=== PATIENT | female | born 1965 | race Caucasian/White ===

== ENCOUNTER 2020-06-03 09:20 | Inpatient (IN) | payer BC ==
[2020-06-03 09:53] LABS: #Eosinphils 0.1 thou/uL (0.0-0.7); #Lymphocytes 1.2 thou/uL (1.20-3.40); #Monocytes 0.5 thou/uL (0.11-0.59); #Neutrophils 3.2 thou/uL (1.40-6.50); %Basophils 0.5 % (0.0-1.0); %Lymphocytes 23.5 % (21.0-51.0); %Monocytes 9.1 % (0.0-10.0); %Neutrophils 64.9 % (42.0-75.0); Mean Corpuscular HGB CONC 34.2 g/dL (32.0-36.0); Mean Corpuscular Hemoglobin 29.7 pg (27.0-31.0); Mean Corpuscular Volume 86.8 fL (78.0-98.0); Mean Platelet Volume 6.7 fL (7.4-10.4); Platelet Count 326 thou/uL (130-400); RBC Distribution Width 12.8 % (11.5-14.5); Red Blood Cell (RBC) Count 3.37 mill/uL (4.20-5.40); White Blood Cell (WBC) Count 4.9 thou/uL (4.8-10.8)
[2020-06-03] MEDS ORDERED: hydrALAZINE 20 MG/ML VIAL ONE (10:11)
[2020-06-03 10:22] LABS: ALT (SGPT) 8 U/L (8-55); AST (SGOT) 9 U/L (5-34); Albumin 3.8 g/dL (3.5-5.0); Alkaline Phosphatase 64 U/L (40-110); Anion Gap 16 mmol/L (10-20); BUN (Urea Nitrogen) 33 mg/dL (9.8-20.1); Bilirubin, Total 0.4 mg/dL (0.2-1.2); Calc. Creatinine Clearance 0 mL/min (70-130); Calcium 8.3 mg/dL (7.8-10.44); Carbon Dioxide 20 mmol/L (22-29); Chloride 106 mmol/L (98-107); Globulin 2.1 g/dL (2.4-3.5); Glucose 96 mg/dL (70-105); Lipase 41 U/L (8-78); Protein, Total 5.9 g/dL (6.0-8.3); Sodium 138 mmol/L (136-145)
[2020-06-03 14:06] LABS: Bacteria/HPF None Seen HPF (None Seen); Bilirubin Negative (Negative); Blood, Urine Negative (Negative); Clarity Clear (Clear); Glucose, Urine (Dipstick) Normal (Negative); Ketone, Urine Negative (Negative); Leukocyte Negative Leu/uL (Negative); Nitrite Negative (Negative); Protein, Urine (Dipstick) 100 mg/dL (Neg-Trace); RBC/HPF 0-3 HPF (0-3); Specific Gravity, Urine 1.012 (1.002-1.036); Squamous Epithelial 0-3 HPF (0-3); Urobilinogen Normal mg/dL (Less than 2); WBC/HPF 0-3 HPF (0-3)
[2020-06-03] MEDS ORDERED: Acetaminophen 500 MG TAB ONE (14:18)
[2020-06-03] MEDS ORDERED: Ondansetron PF 4 MG/2 ML Vial ONE (14:18)
[2020-06-03] MEDS ORDERED: Acetaminophen 325 MG TAB PO PRN (14:45)
[2020-06-03] MEDS ORDERED: Ondansetron PF 4 MG/2 ML Vial IVP PRN (14:45)
[2020-06-03] MEDS ORDERED: Ondansetron ODT 4 MG TAB SL PRN (14:45)
[2020-06-03] MEDS ORDERED: Furosemide 20 MG TAB PO PRN (15:23)
[2020-06-03] MEDS ORDERED: hydrALAZINE 20 MG/ML VIAL SLOW IVP SCH (15:45)
[2020-06-03] MEDS: Labetalol 100 MG TAB PO SCH (16:54)
[2020-06-03] MEDS: Dextrose 5 % And 0.9 % NaCl 1,000 ML IV SCH (20:23)
[2020-06-03] MEDS: Pantoprazole 40 MG VIAL IVP SCH (20:23)
[2020-06-03] MEDS: Mirtazapine 15 MG Soltab PO SCH (20:24)
[2020-06-03] MEDS: Mycophenolate 250 MG CAP PO SCH (20:25)
[2020-06-03] MEDS: Tacrolimus 1 MG CAP PO SCH (20:25)
[2020-06-03] MEDS: hydrALAZINE 25 MG TAB PO SCH (20:25)
[2020-06-03] MEDS: Sodium Bicarbonate Tab 325 MG TAB PO SCH (20:26)
[2020-06-03] MEDS: Zolpidem Tartrate 5 MG TAB PO PRN (20:38)
[2020-06-03] MEDS ORDERED: NIFEdipine XL 30 MG TAB PO SCH (21:00)
[2020-06-03] MEDS ORDERED: ALPRAZolam 0.25 MG TAB PO SCH (22:00)
[2020-06-03 22:45] LABS: SARS-CoV-2 PCR by NAA Not Detected (NotDetected)
[2020-06-04] MEDS: hydrALAZINE 20 MG/ML VIAL SLOW IVP PRN (03:16)
[2020-06-04 05:34] LABS: #Eosinphils 0.1 thou/uL (0.0-0.7); #Monocytes 0.5 thou/uL (0.11-0.59); #Neutrophils 2.2 thou/uL (1.40-6.50); %Basophils 0.8 % (0.0-1.0); %Eosinophils 2.8 % (0.0-10.0); %Lymphocytes 26.2 % (21.0-51.0); %Monocytes 12.2 % (0.0-10.0); Hemoglobin 9.2 g/dL (12.0-16.0); Mean Corpuscular HGB CONC 32.5 g/dL (32.0-36.0); Mean Corpuscular Hemoglobin 28.5 pg (27.0-31.0); Mean Corpuscular Volume 87.9 fL (78.0-98.0); Mean Platelet Volume 6.6 fL (7.4-10.4); Platelet Count 313 thou/uL (130-400); RBC Distribution Width 12.8 % (11.5-14.5); Red Blood Cell (RBC) Count 3.22 mill/uL (4.20-5.40); White Blood Cell (WBC) Count 3.7 thou/uL (4.8-10.8)
[2020-06-04 05:53] LABS: Anion Gap 12 mmol/L (10-20); BUN (Urea Nitrogen) 32 mg/dL (9.8-20.1); Calc. Creatinine Clearance 16 mL/min (70-130); Calcium 7.7 mg/dL (7.8-10.44); Carbon Dioxide 21 mmol/L (22-29); Chloride 110 mmol/L (98-107); Glucose 102 mg/dL (70-105); Potassium 4.1 mmol/L (3.5-5.1); Sodium 139 mmol/L (136-145)
[2020-06-04 05:54] LABS: Phosphorus 4.6 mg/dL (2.3-4.7)
[2020-06-04] MEDS: Labetalol 100 MG TAB PO SCH ×2 (06:46→17:27)
[2020-06-04] MEDS ORDERED: predniSONE 20 MG TAB PO SCH (08:00)
[2020-06-04] MEDS: Dextrose 5 % And 0.9 % NaCl 1,000 ML IV SCH ×2 (08:44→16:00)
[2020-06-04] MEDS: Mycophenolate 250 MG CAP PO SCH ×2 (08:47→20:38)
[2020-06-04] MEDS: Sodium Bicarbonate Tab 325 MG TAB PO SCH ×3 (08:47→20:38)
[2020-06-04] MEDS: hydrALAZINE 25 MG TAB PO SCH ×3 (08:47→20:39)
[2020-06-04] MEDS: predniSONE 20 MG TAB PO SCH (08:48)
[2020-06-04] MEDS: Enoxaparin Sodium 30 MG/0.3 ML SYRINGE SC SCH (08:49)
[2020-06-04] MEDS ORDERED: FLU VACC QS2020-21(6MOS UP)/PF 60 MCG/0.5 ML SYRINGE IM ONE (09:00)
[2020-06-04] MEDS: Pantoprazole 40 MG VIAL IVP SCH ×2 (09:07→20:38)
[2020-06-04] MEDS: Tacrolimus 1 MG CAP PO SCH ×2 (10:27→20:38)
[2020-06-04] MEDS: EPOETIN ALFA-EPBX (ESRD) 4,000 UNIT/ML VIAL SC SCH (12:51)
[2020-06-04] MEDS: Ondansetron PF 4 MG/2 ML Vial IVP PRN (12:51)
[2020-06-04] MEDS ORDERED: GoLYTELY 4,000 ml Bottle PO SCH (17:45)
[2020-06-04] MEDS ORDERED: Promethazine HCl 25 MG/ML VIAL IM/IV PRN (18:38)
[2020-06-04 20:02] VITALS: BMI 21.0
[2020-06-04] MEDS: Zolpidem Tartrate 5 MG TAB PO PRN (20:38)
[2020-06-04] MEDS: Promethazine HCl 25 MG in Sodium Chloride 0.9% 50 ML IVPB PRN (20:39)
[2020-06-04] MEDS: Mirtazapine 15 MG Soltab PO SCH (20:39)
[2020-06-04] MEDS: Acetaminophen 325 MG TAB PO PRN (22:05)
[2020-06-05] MEDS: hydrALAZINE 20 MG/ML VIAL SLOW IVP PRN ×4 (03:50→23:23)
[2020-06-05] MEDS: Acetaminophen 325 MG TAB PO PRN ×2 (06:17→11:54)
[2020-06-05 06:20] LABS: Iron 88 ug/dL (50-170); Iron Binding Capacity, Total 193 mcg/dL (265-497)
[2020-06-05] MEDS ORDERED: Ferrous Sulfate 325 MG TAB PO SCH (08:00)
[2020-06-05] MEDS: Labetalol 100 MG TAB PO SCH ×2 (08:28→16:40)
[2020-06-05] MEDS ORDERED: hydrALAZINE 20 MG/ML VIAL ONE (09:18)
[2020-06-05] MEDS ORDERED: PROPOFOL 200 MG/20 ML VIAL ONE (10:44)
[2020-06-05] MEDS ORDERED: Lidocaine 1% PF 5 ML VIAL ONE (10:44)
[2020-06-05] MEDS: Pantoprazole 40 MG VIAL IVP SCH ×2 (11:52→20:05)
[2020-06-05] MEDS: Ondansetron PF 4 MG/2 ML Vial IVP PRN (11:52)
[2020-06-05] MEDS: Mycophenolate 250 MG CAP PO SCH ×2 (11:53→21:35)
[2020-06-05] MEDS: Tacrolimus 1 MG CAP PO SCH ×2 (11:54→21:36)
[2020-06-05] MEDS: Sodium Bicarbonate Tab 325 MG TAB PO SCH ×3 (11:54→21:36)
[2020-06-05] MEDS: hydrALAZINE 25 MG TAB PO SCH ×3 (11:55→20:05)
[2020-06-05] MEDS: predniSONE 20 MG TAB PO SCH (11:56)
[2020-06-05 14:27] LABS: #Eosinphils 0.1 thou/uL (0.0-0.7); #Lymphocytes 0.7 thou/uL (1.20-3.40); #Monocytes 0.3 thou/uL (0.11-0.59); #Neutrophils 5.4 thou/uL (1.40-6.50); %Basophils 0.5 % (0.0-1.0); %Lymphocytes 10.6 % (21.0-51.0); %Monocytes 4.4 % (0.0-10.0); %Neutrophils 83.5 % (42.0-75.0); Hemoglobin 9.8 g/dL (12.0-16.0); Mean Corpuscular HGB CONC 33.8 g/dL (32.0-36.0); Mean Corpuscular Hemoglobin 29.5 pg (27.0-31.0); Mean Corpuscular Volume 87.3 fL (78.0-98.0); Mean Platelet Volume 6.3 fL (7.4-10.4); Platelet Count 355 thou/uL (130-400); RBC Distribution Width 12.8 % (11.5-14.5); White Blood Cell (WBC) Count 6.5 thou/uL (4.8-10.8)
[2020-06-05] MEDS: Dextrose 5 % And 0.9 % NaCl 1,000 ML IV SCH (14:43)
[2020-06-05 14:53] LABS: Anion Gap 14 mmol/L (10-20); BUN (Urea Nitrogen) 25 mg/dL (9.8-20.1); Calc. Creatinine Clearance 15 mL/min (70-130); Calcium 8.1 mg/dL (7.8-10.44); Carbon Dioxide 20 mmol/L (22-29); Chloride 111 mmol/L (98-107); Glucose 153 mg/dL (70-105); Potassium 3.9 mmol/L (3.5-5.1); Sodium 141 mmol/L (136-145)
[2020-06-05] MEDS: Promethazine HCl 25 MG in Sodium Chloride 0.9% 50 ML IVPB PRN (16:39)
[2020-06-05] MEDS ORDERED: GoLYTELY 4,000 ml Bottle PO SCH (20:00)
[2020-06-05] MEDS: Morphine 2 MG/ML VIAL SLOW IVP PRN (20:06)
[2020-06-05] MEDS ORDERED: Prochlorperazine Edisylate 10 MG in Sodium Chloride 0.9% 50 ML IVPB PRN (21:31)
[2020-06-05] MEDS: Mirtazapine 15 MG Soltab PO SCH (21:35)
[2020-06-05] MEDS ORDERED: Ondansetron HCl/PF 8 MG in Sodium Chloride 0.9% 50 ML IVPB SCH (22:00)
[2020-06-06] MEDS: Morphine 2 MG/ML VIAL SLOW IVP PRN (05:07)
[2020-06-06] MEDS: hydrALAZINE 20 MG/ML VIAL SLOW IVP PRN (05:07)
[2020-06-06 05:09] LABS: #Eosinphils 0.1 thou/uL (0.0-0.7); #Lymphocytes 1.7 thou/uL (1.20-3.40); #Monocytes 0.5 thou/uL (0.11-0.59); #Neutrophils 3.3 thou/uL (1.40-6.50); %Basophils 0.6 % (0.0-1.0); %Lymphocytes 29.6 % (21.0-51.0); %Monocytes 9.1 % (0.0-10.0); %Neutrophils 59.7 % (42.0-75.0); Hemoglobin 9.2 g/dL (12.0-16.0); Mean Corpuscular HGB CONC 34.2 g/dL (32.0-36.0); Mean Corpuscular Hemoglobin 29.8 pg (27.0-31.0); Mean Corpuscular Volume 87.3 fL (78.0-98.0); Mean Platelet Volume 6.1 fL (7.4-10.4); Platelet Count 368 thou/uL (130-400); RBC Distribution Width 12.9 % (11.5-14.5); White Blood Cell (WBC) Count 5.6 thou/uL (4.8-10.8)
[2020-06-06 05:29] LABS: Anion Gap 16 mmol/L (10-20); BUN (Urea Nitrogen) 25 mg/dL (9.8-20.1); Calc. Creatinine Clearance 14 mL/min (70-130); Calcium 7.7 mg/dL (7.8-10.44); Carbon Dioxide 19 mmol/L (22-29); Chloride 107 mmol/L (98-107); Glucose 100 mg/dL (70-105); Potassium 3.8 mmol/L (3.5-5.1); Sodium 138 mmol/L (136-145)
[2020-06-06] MEDS: Pantoprazole 40 MG VIAL IVP SCH ×2 (07:45→22:42)
[2020-06-06] MEDS: Mycophenolate 250 MG CAP PO SCH ×2 (07:46→22:41)
[2020-06-06] MEDS: Sodium Bicarbonate Tab 325 MG TAB PO SCH ×3 (07:46→22:40)
[2020-06-06] MEDS: Calcitriol 0.25 MCG CAP PO SCH (07:47)
[2020-06-06] MEDS: Labetalol 100 MG TAB PO SCH ×2 (07:47→17:09)
[2020-06-06] MEDS: hydrALAZINE 25 MG TAB PO SCH ×3 (07:47→22:39)
[2020-06-06] MEDS: predniSONE 20 MG TAB PO SCH (07:47)
[2020-06-06] MEDS: Tacrolimus 1 MG CAP PO SCH ×2 (07:48→22:59)
[2020-06-06] MEDS: cloNIDine 0.1 MG TAB PO SCH ×2 (07:48→22:38)
[2020-06-06] MEDS ORDERED: Lidocaine 1% PF 5 ML VIAL ONE (12:05)
[2020-06-06] MEDS ORDERED: PROPOFOL 200 MG/20 ML VIAL ONE ×2 (12:17)
[2020-06-06] MEDS: cloNIDine 0.1mg/24 Hour PATCH TD SCH (13:58)
[2020-06-06] MEDS: Enoxaparin Sodium 30 MG/0.3 ML SYRINGE SC SCH (14:08)
[2020-06-06] MEDS: Ondansetron HCl/PF 8 MG in Sodium Chloride 0.9% 50 ML IVPB SCH ×2 (14:08→22:41)
[2020-06-06] MEDS: Mirtazapine 15 MG Soltab PO SCH (22:59)
[2020-06-07 06:22] LABS: #Eosinphils 0.1 thou/uL (0.0-0.7); #Lymphocytes 1.8 thou/uL (1.20-3.40); #Monocytes 0.6 thou/uL (0.11-0.59); #Neutrophils 3.6 thou/uL (1.40-6.50); %Basophils 0.4 % (0.0-1.0); %Eosinophils 1.4 % (0.0-10.0); %Lymphocytes 29.3 % (21.0-51.0); %Monocytes 9.4 % (0.0-10.0); %Neutrophils 59.5 % (42.0-75.0); Hemoglobin 8.2 g/dL (12.0-16.0); Mean Corpuscular HGB CONC 33.6 g/dL (32.0-36.0); Mean Corpuscular Hemoglobin 29.5 pg (27.0-31.0); Mean Corpuscular Volume 87.9 fL (78.0-98.0); Mean Platelet Volume 6.4 fL (7.4-10.4); Platelet Count 335 thou/uL (130-400); RBC Distribution Width 12.7 % (11.5-14.5); Red Blood Cell (RBC) Count 2.79 mill/uL (4.20-5.40); White Blood Cell (WBC) Count 6.1 thou/uL (4.8-10.8)
[2020-06-07] MEDS: Labetalol 100 MG TAB PO SCH ×2 (06:47→15:50)
[2020-06-07 06:48] LABS: Anion Gap 15 mmol/L (10-20); BUN (Urea Nitrogen) 30 mg/dL (9.8-20.1); Calc. Creatinine Clearance 12 mL/min (70-130); Calcium 7.3 mg/dL (7.8-10.44); Carbon Dioxide 22 mmol/L (22-29); Chloride 107 mmol/L (98-107); Glucose 92 mg/dL (70-105); Potassium 3.6 mmol/L (3.5-5.1); Sodium 140 mmol/L (136-145)
[2020-06-07] MEDS: Pantoprazole 40 MG VIAL IVP SCH ×2 (09:25→21:01)
[2020-06-07] MEDS: cloNIDine 0.1 MG TAB PO SCH (09:26)
[2020-06-07] MEDS: Tacrolimus 1 MG CAP PO SCH ×2 (09:26→21:09)
[2020-06-07] MEDS: Enoxaparin Sodium 30 MG/0.3 ML SYRINGE SC SCH (09:26)
[2020-06-07] MEDS: hydrALAZINE 25 MG TAB PO SCH ×3 (09:27→20:59)
[2020-06-07] MEDS: Sodium Bicarbonate Tab 325 MG TAB PO SCH ×3 (09:27→21:01)
[2020-06-07] MEDS: Mycophenolate 250 MG CAP PO SCH ×2 (09:28→21:00)
[2020-06-07] MEDS: predniSONE 20 MG TAB PO SCH (09:28)
[2020-06-07] MEDS: Calcitriol 0.25 MCG CAP PO SCH (09:29)
[2020-06-07] MEDS ORDERED: Dextrose 5 %-0.45 % NaCl 1,000 ML IV SCH (10:30)
[2020-06-07] MEDS: Ondansetron HCl/PF 8 MG in Sodium Chloride 0.9% 50 ML IVPB SCH ×2 (11:59→21:40)
[2020-06-07] MEDS: Dextrose 5 %-0.45 % NaCl 1,000 ML IV SCH ×2 (11:59→21:41)
[2020-06-07 13:14] LABS: Tacrolimus 5.4 ng/mL (2.0-20.0)
[2020-06-07] MEDS: Mirtazapine 15 MG Soltab PO SCH (21:09)
[2020-06-07] MEDS: Acetaminophen 325 MG TAB PO PRN (23:35)
[2020-06-08 05:56] LABS: Anion Gap 16 mmol/L (10-20); BUN (Urea Nitrogen) 33 mg/dL (9.8-20.1); Calc. Creatinine Clearance 11 mL/min (70-130); Calcium 6.6 mg/dL (7.8-10.44); Carbon Dioxide 15 mmol/L (22-29); Chloride 110 mmol/L (98-107); Glucose 124 mg/dL (70-105); Potassium 3.9 mmol/L (3.5-5.1); Sodium 137 mmol/L (136-145)
[2020-06-08 06:01] LABS: #Lymphocytes 1.4 thou/uL (1.20-3.40); #Monocytes 0.5 thou/uL (0.11-0.59); #Neutrophils 2.3 thou/uL (1.40-6.50); %Basophils 1.1 % (0.0-1.0); %Eosinophils 1.1 % (0.0-10.0); %Lymphocytes 32.7 % (21.0-51.0); %Monocytes 11.4 % (0.0-10.0); %Neutrophils 53.7 % (42.0-75.0); Hemoglobin 7.9 g/dL (12.0-16.0); Mean Corpuscular HGB CONC 34.3 g/dL (32.0-36.0); Mean Corpuscular Hemoglobin 30.4 pg (27.0-31.0); Mean Corpuscular Volume 88.7 fL (78.0-98.0); Mean Platelet Volume 6.7 fL (7.4-10.4); Platelet Count 334 thou/uL (130-400); RBC Distribution Width 12.7 % (11.5-14.5); Red Blood Cell (RBC) Count 2.58 mill/uL (4.20-5.40); White Blood Cell (WBC) Count 4.3 thou/uL (4.8-10.8)
[2020-06-08] MEDS: Labetalol 100 MG TAB PO SCH ×2 (06:51→15:57)
[2020-06-08] MEDS: Ondansetron HCl/PF 8 MG in Sodium Chloride 0.9% 50 ML IVPB SCH ×2 (09:30→20:33)
[2020-06-08] MEDS: Pantoprazole 40 MG VIAL IVP SCH ×2 (09:31→20:34)
[2020-06-08] MEDS: Dextrose 5 %-0.45 % NaCl 1,000 ML IV SCH (09:31)
[2020-06-08] MEDS: predniSONE 20 MG TAB PO SCH (09:31)
[2020-06-08] MEDS: Sodium Bicarbonate Tab 325 MG TAB PO SCH ×3 (09:42→20:34)
[2020-06-08] MEDS: Tacrolimus 1 MG CAP PO SCH ×2 (09:43→20:34)
[2020-06-08] MEDS: Calcitriol 0.25 MCG CAP PO SCH (09:44)
[2020-06-08] MEDS: hydrALAZINE 25 MG TAB PO SCH ×3 (09:44→20:35)
[2020-06-08] MEDS: Mycophenolate 250 MG CAP PO SCH ×2 (09:45→20:34)
[2020-06-08] MEDS: Enoxaparin Sodium 30 MG/0.3 ML SYRINGE SC SCH (09:46)
[2020-06-08] MEDS: Sodium Bicarbonate 150 MEQ in Dextrose 5% in Water 1,000 ML IV SCH (12:58)
[2020-06-08 18:37] LABS: Creatinine, Urine 74.75 mg/dL (47-110)
[2020-06-08] MEDS: Mirtazapine 15 MG Soltab PO SCH (20:33)
[2020-06-09] MEDS: Sodium Bicarbonate 150 MEQ in Dextrose 5% in Water 1,000 ML IV SCH (02:04)
[2020-06-09] MEDS: hydrALAZINE 20 MG/ML VIAL SLOW IVP PRN (04:17)
[2020-06-09 07:05] LABS: Albumin 2.8 g/dL (3.5-5.0); Anion Gap 12 mmol/L (10-20); BUN (Urea Nitrogen) 33 mg/dL (9.8-20.1); BUN/Creatinine Ratio 6.93; Calc. Creatinine Clearance 11 mL/min (70-130); Calcium 6.9 mg/dL (7.8-10.44); Carbon Dioxide 30 mmol/L (22-29); Chloride 102 mmol/L (98-107); Glucose 109 mg/dL (70-105); Phosphorus 3.3 mg/dL (2.3-4.7); Potassium 3.3 mmol/L (3.5-5.1); Sodium 141 mmol/L (136-145)
[2020-06-09] MEDS: predniSONE 20 MG TAB PO SCH (08:07)
[2020-06-09] MEDS: Labetalol 100 MG TAB PO SCH ×2 (08:07→16:07)
[2020-06-09] MEDS ORDERED: Potassium Chloride 20 MEQ TAB PO SCH (10:00)
[2020-06-09] MEDS: Tacrolimus 1 MG CAP PO SCH ×2 (10:20→20:53)
[2020-06-09] MEDS: Acetaminophen 325 MG TAB PO PRN (10:20)
[2020-06-09] MEDS: Mycophenolate 250 MG CAP PO SCH ×2 (10:21→20:51)
[2020-06-09] MEDS: hydrALAZINE 25 MG TAB PO SCH ×3 (10:21→20:51)
[2020-06-09] MEDS: Calcitriol 0.25 MCG CAP PO SCH (10:21)
[2020-06-09] MEDS: Ondansetron HCl/PF 8 MG in Sodium Chloride 0.9% 50 ML IVPB SCH ×2 (10:22→20:48)
[2020-06-09] MEDS: Pantoprazole 40 MG VIAL IVP SCH ×2 (10:22→21:10)
[2020-06-09] MEDS: Enoxaparin Sodium 30 MG/0.3 ML SYRINGE SC SCH (10:23)
[2020-06-09] MEDS: Sodium Bicarbonate Tab 325 MG TAB PO SCH (12:51)
[2020-06-09] MEDS: Lactated Ringer's 1,000 ML IV SCH ×2 (13:40→20:50)
[2020-06-09] MEDS: Mirtazapine 15 MG Soltab PO SCH (20:53)
[2020-06-10] MEDS: Lactated Ringer's 1,000 ML IV SCH ×2 (05:10→21:06)
[2020-06-10 05:39] LABS: Albumin 2.6 g/dL (3.5-5.0); Anion Gap 12 mmol/L (10-20); BUN (Urea Nitrogen) 32 mg/dL (9.8-20.1); BUN/Creatinine Ratio 7.22; Calc. Creatinine Clearance 12 mL/min (70-130); Calcium 6.9 mg/dL (7.8-10.44); Carbon Dioxide 30 mmol/L (22-29); Chloride 103 mmol/L (98-107); Glucose 94 mg/dL (70-105); Magnesium 1.5 mg/dL (1.6-2.6); Phosphorus 3.5 mg/dL (2.3-4.7); Potassium 4.1 mmol/L (3.5-5.1); Sodium 141 mmol/L (136-145)
[2020-06-10] MEDS: Tacrolimus 1 MG CAP PO SCH ×2 (08:42→21:06)
[2020-06-10] MEDS: Mycophenolate 250 MG CAP PO SCH ×2 (08:43→21:07)
[2020-06-10] MEDS: hydrALAZINE 25 MG TAB PO SCH ×3 (08:43→21:07)
[2020-06-10] MEDS: Calcitriol 0.25 MCG CAP PO SCH (08:44)
[2020-06-10] MEDS: Pantoprazole 40 MG VIAL IVP SCH ×2 (08:45→21:06)
[2020-06-10] MEDS: Ondansetron HCl/PF 8 MG in Sodium Chloride 0.9% 50 ML IVPB SCH ×2 (08:45→21:15)
[2020-06-10] MEDS: Enoxaparin Sodium 30 MG/0.3 ML SYRINGE SC SCH (08:47)
[2020-06-10] MEDS ORDERED: Albumin 25% 25 GM/100 ML BOT IVPB ONE (08:56)
[2020-06-10] MEDS: predniSONE 20 MG TAB PO SCH (09:03)
[2020-06-10] MEDS: Labetalol 100 MG TAB PO SCH ×2 (09:04→17:24)
[2020-06-10] MEDS: Albumin 25% 25 GM/100 ML BOT IVPB SCH ×3 (10:04→21:06)
[2020-06-10] MEDS: Sodium Bicarbonate Tab 325 MG TAB PO SCH ×2 (15:44→21:08)
[2020-06-10] MEDS: Mirtazapine 15 MG Soltab PO SCH (21:06)
[2020-06-10] MEDS: Acetaminophen 325 MG TAB PO PRN (21:13)
[2020-06-11] MEDS: Lactated Ringer's 1,000 ML IV SCH ×3 (00:38→21:11)
[2020-06-11] MEDS: Albumin 25% 25 GM/100 ML BOT IVPB SCH (04:14)
[2020-06-11 05:35] LABS: #Eosinphils 0.2 thou/uL (0.0-0.7); #Lymphocytes 1.4 thou/uL (1.20-3.40); #Monocytes 0.8 thou/uL (0.11-0.59); #Neutrophils 3.3 thou/uL (1.40-6.50); %Basophils 0.5 % (0.0-1.0); %Eosinophils 3.3 % (0.0-10.0); %Lymphocytes 25.4 % (21.0-51.0); %Monocytes 13.2 % (0.0-10.0); %Neutrophils 57.7 % (42.0-75.0); Hemoglobin 7.4 g/dL (12.0-16.0); Mean Corpuscular HGB CONC 33.6 g/dL (32.0-36.0); Mean Corpuscular Hemoglobin 29.8 pg (27.0-31.0); Mean Corpuscular Volume 88.8 fL (78.0-98.0); Mean Platelet Volume 6.7 fL (7.4-10.4); Platelet Count 246 thou/uL (130-400); Red Blood Cell (RBC) Count 2.47 mill/uL (4.20-5.40); White Blood Cell (WBC) Count 5.6 thou/uL (4.8-10.8)
[2020-06-11 06:45] LABS: Albumin 3.9 g/dL (3.5-5.0); Anion Gap 13 mmol/L (10-20); BUN (Urea Nitrogen) 30 mg/dL (9.8-20.1); BUN/Creatinine Ratio 6.82; Calc. Creatinine Clearance 12 mL/min (70-130); Calcium 8.1 mg/dL (7.8-10.44); Carbon Dioxide 27 mmol/L (22-29); Chloride 106 mmol/L (98-107); Glucose 94 mg/dL (70-105); Iron 54 ug/dL (50-170); Iron Binding Capacity, Total 136 mcg/dL (265-497); Phosphorus 3.3 mg/dL (2.3-4.7); Potassium 4.4 mmol/L (3.5-5.1); Sodium 142 mmol/L (136-145)
[2020-06-11] MEDS: predniSONE 20 MG TAB PO SCH (08:54)
[2020-06-11] MEDS: Labetalol 100 MG TAB PO SCH ×2 (08:54→21:17)
[2020-06-11] MEDS: Calcitriol 0.25 MCG CAP PO SCH (08:55)
[2020-06-11] MEDS: Enoxaparin Sodium 30 MG/0.3 ML SYRINGE SC SCH (08:55)
[2020-06-11] MEDS: hydrALAZINE 25 MG TAB PO SCH ×3 (08:56→21:12)
[2020-06-11] MEDS: Mycophenolate 250 MG CAP PO SCH ×2 (08:57→21:12)
[2020-06-11] MEDS: Tacrolimus 1 MG CAP PO SCH ×2 (08:58→21:12)
[2020-06-11] MEDS: Pantoprazole 40 MG VIAL IVP SCH ×2 (08:58→21:12)
[2020-06-11] MEDS: Ondansetron HCl/PF 8 MG in Sodium Chloride 0.9% 50 ML IVPB SCH ×2 (08:59→21:12)
[2020-06-11] MEDS: Acetaminophen 325 MG TAB PO PRN (09:14)
[2020-06-11] MEDS ORDERED: IRON SUCROSE COMPLEX 100 MG/5 ML SLOW IVP SCH (09:15)
[2020-06-11] MEDS: Sodium Bicarbonate Tab 325 MG TAB PO SCH ×3 (09:19→21:17)
[2020-06-11] MEDS ORDERED: Sodium Ferric Gluconate 62.5 MG/5 ML AMP SLOW IVP SCH ×2 (09:30→10:30)
[2020-06-11] MEDS ORDERED: CEFAZOLIN 2 GM in Premix Bag 1 BAG IVPB SCH (09:45)
[2020-06-11] MEDS ORDERED: Lidocaine 2% w/Epinephrine 1:200K 20 ML VIAL ONE (15:36)
[2020-06-11] MEDS ORDERED: Heparin 5,000 UNITS/ML VIAL ONE (15:36)
[2020-06-11] MEDS ORDERED: Lidocaine 2% PF 5 ML VIAL ONE ×2 (15:36→15:38)
[2020-06-11] MEDS ORDERED: Heparin 10,000 UNITS/ 10 ML VIAL ONE ×2 (15:36→16:40)
[2020-06-11] MEDS ORDERED: Bupivacaine PF 0.5% 30 ML VIAL ONE (15:36)
[2020-06-11] MEDS ORDERED: Protamine Sulfate 50 MG/5 ML VIAL ONE (15:37)
[2020-06-11] MEDS ORDERED: Sodium Chloride 0.9% 20 ML ONE (15:38)
[2020-06-11] MEDS ORDERED: Ioversol 68 % 50 ML VIAL ONE (15:38)
[2020-06-11] MEDS ORDERED: Fentanyl 100 MCG/2 ML VIAL ONE ×3 (15:46→19:04)
[2020-06-11] MEDS ORDERED: Sodium Chloride 0.9% 10 ML ONE (16:04)
[2020-06-11] MEDS ORDERED: Midazolam HCl 2 mg/2 ml Vial ONE (16:11)
[2020-06-11 16:13] LABS: Routine O & P Final report (.)
[2020-06-11] MEDS ORDERED: ePHEDrine 50 MG/ML VIAL ONE (16:19)
[2020-06-11] MEDS ORDERED: Glycopyrrolate 0.2 MG/ML 5 ML SYRINGE ONE (16:19)
[2020-06-11] MEDS ORDERED: PROPOFOL 200 MG/20 ML VIAL ONE (16:19)
[2020-06-11] MEDS ORDERED: Ondansetron PF 4 MG/2 ML Vial ONE (16:19)
[2020-06-11] MEDS ORDERED: PHENYLEPHRINE-NS 100 MCG/ML 10 ML SYRINGE ONE (16:19)
[2020-06-11] MEDS ORDERED: Lidocaine 1% PF 5 ML VIAL ONE (16:19)
[2020-06-11] MEDS ORDERED: Rocuronium Bromide 10 MG/ML (10ML VIAL) ONE (16:19)
[2020-06-11 19:52] LABS: BHCG - Serum Negative (NEGATIVE); Pregs Control Background? CLEAR/WHITE (CLR/WHITE); Pregs Control Bar Appear? YES (CONTROL BAR)
[2020-06-11] MEDS: Mirtazapine 15 MG Soltab PO SCH (21:12)
[2020-06-11] MEDS: EPOETIN ALFA-EPBX (ESRD) 4,000 UNIT/ML VIAL SC SCH (21:34)
[2020-06-11] MEDS: Morphine 2 MG/ML VIAL SLOW IVP PRN (22:11)
[2020-06-12] MEDS: Morphine 2 MG/ML VIAL SLOW IVP PRN ×5 (04:14→22:53)
[2020-06-12 05:23] LABS: #Lymphocytes 0.6 thou/uL (1.20-3.40); #Monocytes 0.4 thou/uL (0.11-0.59); #Neutrophils 6.6 thou/uL (1.40-6.50); %Basophils 0.2 % (0.0-1.0); %Eosinophils 0.3 % (0.0-10.0); %Lymphocytes 8.2 % (21.0-51.0); %Monocytes 4.6 % (0.0-10.0); %Neutrophils 86.7 % (42.0-75.0); Hemoglobin 7.8 g/dL (12.0-16.0); Mean Corpuscular HGB CONC 32.5 g/dL (32.0-36.0); Mean Corpuscular Volume 89.1 fL (78.0-98.0); Mean Platelet Volume 7.3 fL (7.4-10.4); Platelet Count 226 thou/uL (130-400); RBC Distribution Width 13.2 % (11.5-14.5); White Blood Cell (WBC) Count 7.7 thou/uL (4.8-10.8)
[2020-06-12 05:54] LABS: Albumin 3.9 g/dL (3.5-5.0); Anion Gap 15 mmol/L (10-20); BUN (Urea Nitrogen) 36 mg/dL (9.8-20.1); BUN/Creatinine Ratio 7.83; Calc. Creatinine Clearance 12 mL/min (70-130); Calcium 8.3 mg/dL (7.8-10.44); Carbon Dioxide 22 mmol/L (22-29); Chloride 105 mmol/L (98-107); Glucose 132 mg/dL (70-105); Phosphorus 5.3 mg/dL (2.3-4.7); Potassium 5.4 mmol/L (3.5-5.1); Sodium 137 mmol/L (136-145)
[2020-06-12 07:17] LABS: CMV DNA-PCR Test Positive < 200 IU/mL (Negative)
[2020-06-12 08:54] LABS: HBSAB Concentration Less than 8.00 mIU/mL; Hep B Core Total Ab Non-Reactive (NonReactive); Hep B Core Total Index 0.04 S/CO (0-0.79); Hep B Surf AB Non-Reactive (NonReactive); Hep B Surf Ag Non-Reactive S/CO (NonReactive); Hep C IgG Ab Non-Reactive (NonReactive); Hep C Index 0.02 S/CO (0-0.79)
[2020-06-12] MEDS: hydrALAZINE 25 MG TAB PO SCH ×3 (08:58→21:46)
[2020-06-12] MEDS: Mycophenolate 250 MG CAP PO SCH ×2 (08:58→21:45)
[2020-06-12] MEDS: Calcitriol 0.25 MCG CAP PO SCH (08:59)
[2020-06-12] MEDS: Sodium Bicarbonate Tab 325 MG TAB PO SCH ×3 (08:59→21:46)
[2020-06-12] MEDS: predniSONE 20 MG TAB PO SCH (09:00)
[2020-06-12] MEDS ORDERED: cloNIDine 0.1mg/24 Hour PATCH TD SCH (09:00)
[2020-06-12] MEDS: Labetalol 100 MG TAB PO SCH ×2 (09:00→15:46)
[2020-06-12] MEDS: Enoxaparin Sodium 30 MG/0.3 ML SYRINGE SC SCH (09:01)
[2020-06-12] MEDS: Tacrolimus 1 MG CAP PO SCH ×2 (09:01→21:44)
[2020-06-12] MEDS: Pantoprazole 40 MG VIAL IVP SCH ×2 (09:01→21:45)
[2020-06-12] MEDS: traMADol HCl 50 MG TAB PO PRN (09:02)
[2020-06-12] MEDS: Acetaminophen 325 MG TAB PO PRN (09:02)
[2020-06-12] MEDS ORDERED: Tuberculin PPD 0.1 ML VIAL I-DERMAL SCH ×2 (10:15)
[2020-06-12] MEDS: Lactated Ringer's 1,000 ML IV SCH ×2 (13:24→19:37)
[2020-06-12] MEDS: Ondansetron HCl/PF 8 MG in Sodium Chloride 0.9% 50 ML IVPB SCH ×2 (13:25→21:47)
[2020-06-12] MEDS ORDERED: Heparin 10,000 UNITS/ 10 ML VIAL ONE (14:23)
[2020-06-12] MEDS: Mirtazapine 15 MG Soltab PO SCH (21:48)
[2020-06-12] MEDS: Zolpidem Tartrate 5 MG TAB PO PRN (22:59)
[2020-06-13] MEDS: Lactated Ringer's 1,000 ML IV SCH (03:45)
[2020-06-13 06:58] LABS: #Eosinphils 0.1 thou/uL (0.0-0.7); #Lymphocytes 1.8 thou/uL (1.20-3.40); #Monocytes 0.8 thou/uL (0.11-0.59); #Neutrophils 4.2 thou/uL (1.40-6.50); %Basophils 0.3 % (0.0-1.0); %Eosinophils 2.2 % (0.0-10.0); %Lymphocytes 25.5 % (21.0-51.0); %Monocytes 11.8 % (0.0-10.0); %Neutrophils 60.3 % (42.0-75.0); Hemoglobin 7.1 g/dL (12.0-16.0); Mean Corpuscular HGB CONC 32.8 g/dL (32.0-36.0); Mean Corpuscular Hemoglobin 29.7 pg (27.0-31.0); Mean Corpuscular Volume 90.5 fL (78.0-98.0); Mean Platelet Volume 7.3 fL (7.4-10.4); Platelet Count 243 thou/uL (130-400); RBC Distribution Width 13.5 % (11.5-14.5); White Blood Cell (WBC) Count 6.9 thou/uL (4.8-10.8)
[2020-06-13 07:25] LABS: Albumin 3.6 g/dL (3.5-5.0); Anion Gap 13 mmol/L (10-20); BUN (Urea Nitrogen) 31 mg/dL (9.8-20.1); Calc. Creatinine Clearance 13 mL/min (70-130); Carbon Dioxide 27 mmol/L (22-29); Chloride 105 mmol/L (98-107); Glucose 103 mg/dL (70-105); Phosphorus 4.3 mg/dL (2.3-4.7); Potassium 3.8 mmol/L (3.5-5.1); Sodium 141 mmol/L (136-145)
[2020-06-13] MEDS: Morphine 2 MG/ML VIAL SLOW IVP PRN ×3 (08:02→20:58)
[2020-06-13] MEDS: predniSONE 20 MG TAB PO SCH (11:57)
[2020-06-13] MEDS: Pantoprazole 40 MG VIAL IVP SCH ×2 (11:57→20:52)
[2020-06-13] MEDS: Calcitriol 0.25 MCG CAP PO SCH (11:58)
[2020-06-13] MEDS: Enoxaparin Sodium 30 MG/0.3 ML SYRINGE SC SCH (11:58)
[2020-06-13] MEDS: Ondansetron HCl/PF 8 MG in Sodium Chloride 0.9% 50 ML IVPB SCH ×2 (12:00→20:59)
[2020-06-13] MEDS: cloNIDine 0.1mg/24 Hour PATCH TD SCH (12:00)
[2020-06-13] MEDS: Tacrolimus 1 MG CAP PO SCH ×2 (12:00→20:57)
[2020-06-13] MEDS: hydrALAZINE 25 MG TAB PO SCH ×3 (12:00→20:54)
[2020-06-13] MEDS: Labetalol 100 MG TAB PO SCH ×2 (12:01→17:03)
[2020-06-13] MEDS: traMADol HCl 50 MG TAB PO PRN (12:16)
[2020-06-13] MEDS: Acetaminophen 325 MG TAB PO PRN (12:16)
[2020-06-13] MEDS: Mycophenolate 250 MG CAP PO SCH (18:43)
[2020-06-13] MEDS: Sodium Bicarbonate Tab 325 MG TAB PO SCH (18:43)
[2020-06-13] MEDS: Mirtazapine 15 MG Soltab PO SCH (21:09)
[2020-06-13] MEDS: Zolpidem Tartrate 5 MG TAB PO PRN (21:13)
[2020-06-14 05:55] LABS: #Eosinphils 0.2 thou/uL (0.0-0.7); #Lymphocytes 1.7 thou/uL (1.20-3.40); #Monocytes 0.9 thou/uL (0.11-0.59); #Neutrophils 4.9 thou/uL (1.40-6.50); %Basophils 0.4 % (0.0-1.0); %Eosinophils 2.8 % (0.0-10.0); %Lymphocytes 21.5 % (21.0-51.0); %Monocytes 11.7 % (0.0-10.0); %Neutrophils 63.6 % (42.0-75.0); Hemoglobin 7.3 g/dL (12.0-16.0); Mean Corpuscular Hemoglobin 28.9 pg (27.0-31.0); Mean Corpuscular Volume 90.3 fL (78.0-98.0); Platelet Count 259 thou/uL (130-400); RBC Distribution Width 13.4 % (11.5-14.5); Red Blood Cell (RBC) Count 2.52 mill/uL (4.20-5.40); White Blood Cell (WBC) Count 7.7 thou/uL (4.8-10.8)
[2020-06-14 06:16] LABS: Anion Gap 10 mmol/L (10-20); BUN (Urea Nitrogen) 19 mg/dL (9.8-20.1); Calc. Creatinine Clearance 16 mL/min (70-130); Carbon Dioxide 29 mmol/L (22-29); Chloride 103 mmol/L (98-107); Glucose 98 mg/dL (70-105); Potassium 4.1 mmol/L (3.5-5.1); Sodium 138 mmol/L (136-145)
[2020-06-14] MEDS: Labetalol 100 MG TAB PO SCH ×2 (06:36→17:23)
[2020-06-14] MEDS: Morphine 2 MG/ML VIAL SLOW IVP PRN (11:13)
[2020-06-14] MEDS: Enoxaparin Sodium 30 MG/0.3 ML SYRINGE SC SCH (11:15)
[2020-06-14] MEDS ORDERED: READ PPD TEST SITE PO SCH (13:00)
[2020-06-14] MEDS ORDERED: Heparin 10,000 UNITS/ 10 ML VIAL ONE (13:33)
[2020-06-14] MEDS: hydrALAZINE 25 MG TAB PO SCH ×3 (15:58→21:46)
[2020-06-14] MEDS: Ondansetron HCl/PF 8 MG in Sodium Chloride 0.9% 50 ML IVPB SCH ×2 (15:58→21:46)
[2020-06-14] MEDS: Pantoprazole 40 MG VIAL IVP SCH (16:00)
[2020-06-14] MEDS: predniSONE 20 MG TAB PO SCH (17:21)
[2020-06-14] MEDS: Tacrolimus 1 MG CAP PO SCH ×2 (17:21→21:45)
[2020-06-14] MEDS: Calcitriol 0.25 MCG CAP PO SCH (17:22)
[2020-06-14] MEDS: traMADol HCl 50 MG TAB PO PRN (17:23)
[2020-06-14] MEDS: Acetaminophen 325 MG TAB PO PRN (17:23)
[2020-06-14] MEDS ORDERED: Midodrine HCl 5 MG TAB PO SCH (20:15)
[2020-06-14 20:48] LABS: Hemoglobin 8.1 g/dL (12.0-16.0)
[2020-06-14 21:23] LABS: Anion Gap 11 mmol/L (10-20); BUN (Urea Nitrogen) 11 mg/dL (9.8-20.1); Calc. Creatinine Clearance 24 mL/min (70-130); Calcium 8.4 mg/dL (7.8-10.44); Carbon Dioxide 29 mmol/L (22-29); Chloride 102 mmol/L (98-107); Glucose 165 mg/dL (70-105); Magnesium 1.5 mg/dL (1.6-2.6); Phosphorus 2.3 mg/dL (2.3-4.7); Potassium 4.2 mmol/L (3.5-5.1); Sodium 138 mmol/L (136-145)
[2020-06-14] MEDS: Mirtazapine 15 MG Soltab PO SCH (21:46)
[2020-06-14] MEDS ORDERED: Magnesium 2 GM/50 ML 2 GM in Premix Bag 1 BAG IVPB SCH (22:15)
[2020-06-15] MEDS: Labetalol 100 MG TAB PO SCH ×2 (07:00→18:17)
[2020-06-15] MEDS: predniSONE 20 MG TAB PO SCH (08:26)
[2020-06-15] MEDS: Tacrolimus 1 MG CAP PO SCH ×2 (08:27→21:03)
[2020-06-15] MEDS: hydrALAZINE 25 MG TAB PO SCH ×3 (08:30→21:03)
[2020-06-15] MEDS: Calcitriol 0.25 MCG CAP PO SCH (08:31)
[2020-06-15] MEDS: Enoxaparin Sodium 30 MG/0.3 ML SYRINGE SC SCH (08:33)
[2020-06-15] MEDS: Ondansetron HCl/PF 8 MG in Sodium Chloride 0.9% 50 ML IVPB SCH ×2 (08:34→21:12)
[2020-06-15] MEDS ORDERED: Polyethylene Glycol 3350 17 GM Packet PO SCH (11:15)
[2020-06-15] MEDS: Acetaminophen 325 MG TAB PO PRN (11:45)
[2020-06-15] MEDS: traMADol HCl 50 MG TAB PO PRN (11:46)
[2020-06-15] MEDS: Polyethylene Glycol 3350 17 GM Packet PO SCH (21:03)
[2020-06-15] MEDS: Mirtazapine 15 MG Soltab PO SCH (21:03)
[2020-06-16] MEDS: traMADol HCl 50 MG TAB PO PRN ×3 (04:25→20:39)
[2020-06-16 04:47] LABS: #Eosinphils 0.1 thou/uL (0.0-0.7); #Lymphocytes 1.6 thou/uL (1.20-3.40); #Monocytes 0.8 thou/uL (0.11-0.59); #Neutrophils 6.6 thou/uL (1.40-6.50); %Basophils 0.4 % (0.0-1.0); %Eosinophils 1.5 % (0.0-10.0); %Lymphocytes 17.3 % (21.0-51.0); %Monocytes 9.2 % (0.0-10.0); %Neutrophils 71.5 % (42.0-75.0); Mean Corpuscular HGB CONC 32.3 g/dL (32.0-36.0); Mean Corpuscular Hemoglobin 29.2 pg (27.0-31.0); Mean Corpuscular Volume 90.2 fL (78.0-98.0); Mean Platelet Volume 7.5 fL (7.4-10.4); Platelet Count 267 thou/uL (130-400); RBC Distribution Width 13.5 % (11.5-14.5); Red Blood Cell (RBC) Count 2.41 mill/uL (4.20-5.40); White Blood Cell (WBC) Count 9.2 thou/uL (4.8-10.8)
[2020-06-16 05:22] LABS: Anion Gap 11 mmol/L (10-20); BUN (Urea Nitrogen) 31 mg/dL (9.8-20.1); Calc. Creatinine Clearance 13 mL/min (70-130); Calcium 8.3 mg/dL (7.8-10.44); Carbon Dioxide 31 mmol/L (22-29); Chloride 102 mmol/L (98-107); Glucose 110 mg/dL (70-105); Potassium 4.1 mmol/L (3.5-5.1); Sodium 140 mmol/L (136-145)
[2020-06-16] MEDS: predniSONE 20 MG TAB PO SCH (08:44)
[2020-06-16] MEDS: Labetalol 100 MG TAB PO SCH ×2 (08:45→17:38)
[2020-06-16] MEDS: Polyethylene Glycol 3350 17 GM Packet PO SCH ×2 (10:51→20:34)
[2020-06-16] MEDS: Enoxaparin Sodium 30 MG/0.3 ML SYRINGE SC SCH (10:51)
[2020-06-16] MEDS: Tacrolimus 1 MG CAP PO SCH ×2 (10:51→20:34)
[2020-06-16] MEDS: Calcitriol 0.25 MCG CAP PO SCH (10:52)
[2020-06-16] MEDS: hydrALAZINE 25 MG TAB PO SCH ×2 (10:52→17:38)
[2020-06-16] MEDS: Ondansetron HCl/PF 8 MG in Sodium Chloride 0.9% 50 ML IVPB SCH ×2 (10:53→20:34)
[2020-06-16] MEDS: Mirtazapine 15 MG Soltab PO SCH (20:34)
[2020-06-16] MEDS ORDERED: Magnesium Citrate 300 ML BOT PO SCH (21:00)
[2020-06-17 06:10] LABS: Hemoglobin 7.3 g/dL (12.0-16.0); Platelet Count 295 thou/uL (130-400)
[2020-06-17] MEDS: Labetalol 100 MG TAB PO SCH ×2 (06:31→16:54)
[2020-06-17] MEDS ORDERED: Heparin 10,000 UNITS/ 10 ML VIAL ONE (10:28)
[2020-06-17] MEDS: traMADol HCl 50 MG TAB PO PRN ×2 (13:20→21:20)
[2020-06-17] MEDS: Tacrolimus 1 MG CAP PO SCH ×2 (13:21→21:22)
[2020-06-17] MEDS: hydrALAZINE 25 MG TAB PO SCH ×3 (13:22→21:30)
[2020-06-17] MEDS: predniSONE 20 MG TAB PO SCH (13:23)
[2020-06-17] MEDS: Enoxaparin Sodium 30 MG/0.3 ML SYRINGE SC SCH (13:24)
[2020-06-17] MEDS: Calcitriol 0.25 MCG CAP PO SCH (13:24)
[2020-06-17] MEDS: Polyethylene Glycol 3350 17 GM Packet PO SCH ×2 (13:50→21:23)
[2020-06-17] MEDS: Ondansetron HCl/PF 8 MG in Sodium Chloride 0.9% 50 ML IVPB SCH ×2 (13:50→21:19)
[2020-06-17] MEDS: Acetaminophen 325 MG TAB PO PRN (21:20)
[2020-06-17] MEDS: Mirtazapine 15 MG Soltab PO SCH (21:22)
[2020-06-18 06:13] LABS: #Basophils 0.1 thou/uL (0.0-0.2); #Eosinphils 0.2 thou/uL (0.0-0.7); #Neutrophils 5.7 thou/uL (1.40-6.50); %Basophils 0.6 % (0.0-1.0); %Eosinophils 2.4 % (0.0-10.0); %Monocytes 11.5 % (0.0-10.0); %Neutrophils 63.5 % (42.0-75.0); Hemoglobin 7.6 g/dL (12.0-16.0); Mean Corpuscular HGB CONC 32.4 g/dL (32.0-36.0); Mean Corpuscular Hemoglobin 29.1 pg (27.0-31.0); Mean Corpuscular Volume 89.6 fL (78.0-98.0); Mean Platelet Volume 7.1 fL (7.4-10.4); Platelet Count 303 thou/uL (130-400); RBC Distribution Width 13.5 % (11.5-14.5); Red Blood Cell (RBC) Count 2.62 mill/uL (4.20-5.40)
[2020-06-18 06:33] LABS: Anion Gap 15 mmol/L (10-20); BUN (Urea Nitrogen) 29 mg/dL (9.8-20.1); Calc. Creatinine Clearance 14 mL/min (70-130); Calcium 8.5 mg/dL (7.8-10.44); Carbon Dioxide 26 mmol/L (22-29); Chloride 100 mmol/L (98-107); Glucose 100 mg/dL (70-105); Potassium 4.4 mmol/L (3.5-5.1); Sodium 137 mmol/L (136-145)
[2020-06-18] MEDS: Labetalol 100 MG TAB PO SCH ×2 (07:31→17:28)
[2020-06-18] MEDS: Tacrolimus 1 MG CAP PO SCH (08:50)
[2020-06-18] MEDS: Enoxaparin Sodium 30 MG/0.3 ML SYRINGE SC SCH (08:50)
[2020-06-18] MEDS: Polyethylene Glycol 3350 17 GM Packet PO SCH (08:50)
[2020-06-18] MEDS: Calcitriol 0.25 MCG CAP PO SCH (08:51)
[2020-06-18] MEDS: predniSONE 20 MG TAB PO SCH (08:51)
[2020-06-18] MEDS: EPOETIN ALFA-EPBX (ESRD) 4,000 UNIT/ML VIAL SC SCH (08:55)
[2020-06-18] MEDS: hydrALAZINE 25 MG TAB PO SCH ×2 (08:56→15:59)
[2020-06-18] MEDS: Ondansetron HCl/PF 8 MG in Sodium Chloride 0.9% 50 ML IVPB SCH (08:56)
[2020-06-18 16:20] VITALS: BP 117/74; TEMP 98.4
== END 2020-06-18 18:30 | disposition home or self-care (01) | DRG 673 ==
LOC: ERS 09:20 → 2SW 12:54 → OBSVTOIN 06-05 13:23 → 2SW 06-06 13:28 → SJJU 06-06 21:40
PROVIDERS: ADMIT Internal Medicine; ATTEND Family Medicine
PROC: 8E0ZXY6 Isolation (ICD-10-PCS; 2020-06-04)
PROC: 0DB98ZX Excision of Duodenum, Via Natural or Artificial Opening Endoscopic, Diagnostic (ICD-10-PCS; 2020-06-05)
PROC: 0DB68ZX Excision of Stomach, Via Natural or Artificial Opening Endoscopic, Diagnostic (ICD-10-PCS; 2020-06-05)
PROC: 0DBK8ZX Excision of Ascending Colon, Via Natural or Artificial Opening Endoscopic, Diagnostic (ICD-10-PCS; 2020-06-06)
PROC: 0DBL8ZX Excision of Transverse Colon, Via Natural or Artificial Opening Endoscopic, Diagnostic (ICD-10-PCS; 2020-06-06)
PROC: 0DBN8ZX Excision of Sigmoid Colon, Via Natural or Artificial Opening Endoscopic, Diagnostic (ICD-10-PCS; 2020-06-06)
PROC: 0DBP8ZX Excision of Rectum, Via Natural or Artificial Opening Endoscopic, Diagnostic (ICD-10-PCS; 2020-06-06)
PROC: 0DBC8ZX Excision of Ileocecal Valve, Via Natural or Artificial Opening Endoscopic, Diagnostic (ICD-10-PCS; 2020-06-06)
PROC: 0DBM8ZX Excision of Descending Colon, Via Natural or Artificial Opening Endoscopic, Diagnostic (ICD-10-PCS; 2020-06-06)
PROC: 03170JD Bypass Right Brachial Artery to Upper Arm Vein with Synthetic Substitute, Open Approach (ICD-10-PCS; principal; 2020-06-11)
PROC: 0JH63XZ Insertion of Tunneled Vascular Access Device into Chest Subcutaneous Tissue and Fascia, Percutaneous Approach (ICD-10-PCS; 2020-06-11)
PROC: 02HV33Z Insertion of Infusion Device into Superior Vena Cava, Percutaneous Approach (ICD-10-PCS; 2020-06-11)
PROC: B518ZZA Fluoroscopy of Superior Vena Cava, Guidance (ICD-10-PCS; 2020-06-11)
PROC: 02HV33Z Insertion of Infusion Device into Superior Vena Cava, Percutaneous Approach (ICD-10-PCS; 2020-06-11)
PROC: B548ZZA Ultrasonography of Superior Vena Cava, Guidance (ICD-10-PCS; 2020-06-11)
PROC: 5A1D70Z Performance of Urinary Filtration, Intermittent, Less than 6 Hours Per Day (ICD-10-PCS; 2020-06-12)
DX: T86.12 Kidney transplant failure (principal); N18.6 End stage renal disease; N17.9 Acute kidney failure, unspecified; N02.8 Recurrent and persistent hematuria with other morphologic changes; K63.3 Ulcer of intestine; E87.2 Acidosis; Z20.822 Contact with and (suspected) exposure to COVID-19; Y84.1 Kidney dialysis as the cause of abnormal reaction of the patient, or of later complication, without mention of misadventure at the time of the procedure; D63.1 Anemia in chronic kidney disease; I10 Essential (primary) hypertension; K21.00 Gastro-esophageal reflux disease with esophagitis, without bleeding; K29.70 Gastritis, unspecified, without bleeding; G47.00 Insomnia, unspecified; F32.9 Major depressive disorder, single episode, unspecified; I16.0 Hypertensive urgency; E86.0 Dehydration; K52.9 Noninfective gastroenteritis and colitis, unspecified; E87.6 Hypokalemia; Z86.16 Personal history of COVID-19; Z79.899 Other long term (current) drug therapy; Z79.52 Long term (current) use of systemic steroids
CPT/HCPCS: 36415; 36416; 71045; 76705; 80048; 80053; 80069; 80197; 81003; 81015; 82274; 82570; 82607; 82728; 82746; 83540; 83550; 83630; 83690; 83735; 83880; 83970; 84100; 84156; 84300; 84443; 84484; 84703; 85014; 85018; 85025; 85049; 85379; 86704; 86706; 86753; 86803; 86850; 86900; 86901; 87045; 87046; 87177; 87324; 87328; 87329; 87340; 87385; 87427; 87449; 87497; 87635; 87899; 88305; 90935; 93005; 93970; 94760; 96372; 96374; 96375; 96376; C1751; C1752; C9113; G0257; G0378; J0360; J0690; J0780; J1644; J1650; J2001; J2250; J2270; J2405; J2550; J2704; J2720; J2916; J3010; J3475; J3490; J7042; J7070; J7507; J7512; J7517; L8670; P9047; Q0162; Q5105; Q9967; S0020; U0003; U0005

== ENCOUNTER 2020-08-18 09:13 | Emergency (ER) | payer BC ==
[2020-08-18] MEDS ORDERED: diphenhydrAMINE 50 MG/ML VIAL ONE (09:59)
[2020-08-18] MEDS ORDERED: Dexamethasone 10 MG/ML VIAL ONE (09:59)
[2020-08-18 10:19] LABS: #Basophils 0.1 thou/uL (0.0-0.2); #Eosinphils 1.1 thou/uL (0.0-0.7); #Lymphocytes 2.6 thou/uL (1.20-3.40); #Monocytes 0.6 thou/uL (0.11-0.59); #Neutrophils 3.5 thou/uL (1.40-6.50); %Basophils 0.9 % (0.0-1.0); %Eosinophils 13.8 % (0.0-10.0); %Lymphocytes 33.5 % (21.0-51.0); %Monocytes 7.4 % (0.0-10.0); %Neutrophils 44.4 % (42.0-75.0); Hemoglobin 10.5 g/dL (12.0-16.0); Mean Corpuscular HGB CONC 34.8 g/dL (32.0-36.0); Mean Corpuscular Hemoglobin 32.4 pg (27.0-31.0); Mean Corpuscular Volume 93.1 fL (78.0-98.0); Mean Platelet Volume 7.2 fL (7.4-10.4); Platelet Count 274 thou/uL (130-400); RBC Distribution Width 12.5 % (11.5-14.5); Red Blood Cell (RBC) Count 3.24 mill/uL (4.20-5.40); White Blood Cell (WBC) Count 7.9 thou/uL (4.8-10.8)
[2020-08-18 10:38] LABS: ALT (SGPT) 9 U/L (8-55); AST (SGOT) 17 U/L (5-34); Alkaline Phosphatase 79 U/L (40-110); Anion Gap 19 mmol/L (10-20); BUN (Urea Nitrogen) 42 mg/dL (9.8-20.1); Bilirubin, Total 0.5 mg/dL (0.2-1.2); Calc. Creatinine Clearance 0 mL/min (70-130); Calcium 9.3 mg/dL (7.8-10.44); Carbon Dioxide 24 mmol/L (22-29); Chloride 101 mmol/L (98-107); Globulin 2.8 g/dL (2.4-3.5); Glucose 120 mg/dL (70-105); Potassium 4.3 mmol/L (3.5-5.1); Protein, Total 6.8 g/dL (6.0-8.3); Sodium 140 mmol/L (136-145)
== END 2020-08-18 11:27 | disposition home or self-care (01) ==
LOC: ERS 09:13
DX: R21 Rash and other nonspecific skin eruption (principal); L08.9 Local infection of the skin and subcutaneous tissue, unspecified; I12.0 Hypertensive chronic kidney disease with stage 5 chronic kidney disease or end stage renal disease; N18.6 End stage renal disease; Z99.2 Dependence on renal dialysis; Z79.899 Other long term (current) drug therapy
CPT/HCPCS: 71045; 80053; 83605; 85025; 87040; 96374; 96375; J1100; J1200